=== PATIENT | female | born 1960 | race African-American/Black ===

== ENCOUNTER 2021-12-24 13:19 | Inpatient (IN) | payer BC ==
[~2021-12-24] VITALS: Ht 157.5 cm; Wt 64.1 kg
[2021-12-24 13:47] LABS: EOSINOPHILS % 0.5 % (0.0-5.0); HEMATOCRIT. 41.2 % (36.0-48.0); LYMPHOCYTES % 35.1 % (20.0-50.0); MEAN CORPUSCULAR HEMOGLOBIN 31.6 pg (28.0-32.0); MEAN CORPUSCULAR VOLUME 93.2 fL (81.0-99.0); MEAN PLATELET VOLUME 6.9 fl (7.4-10.4); MONOCYTES % 7.7 % (2.0-8.0); NEUTROPHILS % 55.7 % (40.0-76.0); PLATELET 267 x1000/uL (130-400); RED BLOOD CELL COUNT 4.42 mill/uL (4.2-5.4); RED CELL DISTRIBUTION WIDTH 16.9 % (11.6-14.6)
[2021-12-24 13:59] LABS: CHLORIDE 105 mEq/L (98-107)
[2021-12-24] MEDS ORDERED: DIPHENHYDRAMINE 50MG/ML VIAL IV ONE (15:30)
[2021-12-24] MEDS ORDERED: EPINEPHRINE 1:1000 1 MG/ML AMP INJ ONE (15:30)
[2021-12-24] MEDS ORDERED: METHYLPREDNISOLONE SOD SUCC 125 MG/2 ML VIAL IV ONE (15:30)
[2021-12-24] MEDS ORDERED: IOHEXOL-350 100 ML BOTTLE ONE (15:31)
[2021-12-24] MEDS ORDERED: ENOXAPARIN 80MG/0.8ML SYR SUBCUT ONE (16:15)
[2021-12-24 20:45] VITALS: BP 152/81
[2021-12-24 20:57] VITALS: BP 141/92
[2021-12-25] VITALS: BP 124/77
[2021-12-25] MEDS ORDERED: ACETAMINOPHEN 325MG TABLET PO PRN ×3 (01:15→02:30)
[2021-12-25] MEDS ORDERED: MAGNESIUM/ALUMINUM HYDROXIDE/SIMETHICONE 30ML UDC PO PRN (02:30)
[2021-12-25] MEDS ORDERED: GUAIFENESIN 200MG/10ML SUGAR FREE UDC PO PRN (02:30)
[2021-12-25] MEDS ORDERED: DOCUSATE SODIUM 100MG CAPSULE PO PRN (02:30)
[2021-12-25] MEDS ORDERED: IPRATROPIUM/ALBUTEROL 0.5-3(2.5)MG/3ML NEB NEB PRN (02:30)
[2021-12-25] MEDS ORDERED: ONDANSETRON HCL 4MG/2ML INJ IV PRN (02:30)
[2021-12-25] MEDS ORDERED: CLONIDINE 0.1MG TABLET PO PRN (02:30)
[2021-12-25] MEDS ORDERED: ZOLPIDEM TARTRATE 5MG TABLET PO PRN (02:30)
[2021-12-25] MEDS ORDERED: NITROGLYCERIN 0.4MG TABLET SL SL PRN (02:30)
[2021-12-25 04:00] VITALS: BP 123/80
[2021-12-25] MEDS: ENOXAPARIN 60MG/0.6ML SYR SUBCUT SCH ×2 (06:29→18:25)
[2021-12-25 06:56] LABS: CHLORIDE 105 mEq/L (98-107); INR 1.1; PROTHROMBIN TIME 11.4 sec (9.6-11.0)
[2021-12-25 06:59] LABS: HEMATOCRIT 41.4 % (36.0-48.0); HEMOGLOBIN 13.9 g/dL (12.0-16.0); MEAN CORPUSCULAR HEMOGLOBIN 31.2 pg (28.0-32.0); MEAN CORPUSCULAR VOLUME 93.2 fL (81.0-99.0); PLATELET 312 x1000/uL (130-400); RED BLOOD CELL COUNT 4.44 mill/uL (4.2-5.4); RED CELL DISTRIBUTION WIDTH 16.8 % (11.6-14.6)
[2021-12-25 07:02] LABS: CREATINE KINASE 97 IU/L (26-192); CREATINE KINASE MB FRACTION < 1.0 ng/mL (0.5-3.6)
[2021-12-25 07:04] LABS: BASOPHILS % 0.1 % (0.0-2.0); HEMATOCRIT. 40.2 % (36.0-48.0); HEMOGLOBIN. 14.1 g/dL (12.0-16.0); LYMPHOCYTES % 11.3 % (20.0-50.0); MEAN CORPUSCULAR HEMOGLOBIN 32.2 pg (28.0-32.0); MEAN CORPUSCULAR VOLUME 92.1 fL (81.0-99.0); MEAN PLATELET VOLUME 7.6 fl (7.4-10.4); NEUTROPHILS % 86.6 % (40.0-76.0); PLATELET 299 x1000/uL (130-400); RED BLOOD CELL COUNT 4.37 mill/uL (4.2-5.4); RED CELL DISTRIBUTION WIDTH 16.7 % (11.6-14.6)
[2021-12-25 07:10] LABS: ETHANOL BLOOD < 10 mg/dL; HDL CHOLESTEROL 63 mg/dL (40-59); LDL CHOLESTEROL 138 mg/dL (5-100); T4 FREE 1.06 ng/dL (0.76-1.46); TOTAL IRON BINDING CAPACITY 258 ug/dL (250-450)
[2021-12-25 07:23] LABS: FOLIC ACID (FOLATE) SERUM 6.6 ng/mL (>5.38)
[2021-12-25 08:00] VITALS: BP 125/79
[2021-12-25] MEDS: ASPIRIN 325MG EC TABLET PO SCH (08:49)
[2021-12-25] MEDS: FAMOTIDINE 20MG TABLET PO SCH ×2 (08:49→21:03)
[2021-12-25 12:00] VITALS: BP 140/81
[2021-12-25 15:51] LABS: CREATINE KINASE 75 IU/L (26-192); CREATINE KINASE MB FRACTION < 1.0 ng/mL (0.5-3.6)
[2021-12-25 16:00] VITALS: BP 121/77
[2021-12-25 20:00] VITALS: BP 127/78
[2021-12-25] MEDS: ATORVASTATIN CALCIUM 10MG TABLET PO SCH (21:03)
[2021-12-26] VITALS: BP 123/72
[2021-12-26 04:00] VITALS: BP_SYST 118; BP_SYST 132; BP_DIAS 68
[2021-12-26] MEDS: ENOXAPARIN 60MG/0.6ML SYR SUBCUT SCH ×2 (05:14→18:25)
[2021-12-26 06:31] LABS: BASOPHILS % 0.6 % (0.0-2.0); EOSINOPHILS % 0.3 % (0.0-5.0); HEMATOCRIT. 38.9 % (36.0-48.0); LYMPHOCYTES % 42.1 % (20.0-50.0); MEAN CORPUSCULAR HEMOGLOBIN 31.2 pg (28.0-32.0); MEAN PLATELET VOLUME 7.6 fl (7.4-10.4); MONOCYTES % 4.7 % (2.0-8.0); NEUTROPHILS % 52.3 % (40.0-76.0); PLATELET 331 x1000/uL (130-400); RED BLOOD CELL COUNT 4.18 mill/uL (4.2-5.4); RED CELL DISTRIBUTION WIDTH 16.7 % (11.6-14.6)
[2021-12-26 07:55] LABS: CHLORIDE 107 mEq/L (98-107)
[2021-12-26 08:00] VITALS: BP 134/87
[2021-12-26 08:04] LABS: PHOSPHORUS 3.6 mg/dL (2.5-4.9)
[2021-12-26] MEDS: ASPIRIN 325MG EC TABLET PO SCH (10:15)
[2021-12-26] MEDS: FAMOTIDINE 20MG TABLET PO SCH ×2 (10:15→22:15)
[2021-12-26 12:00] VITALS: BP 128/85
[2021-12-26 16:00] VITALS: BP 123/63
[2021-12-26 20:00] VITALS: BP 139/85
[2021-12-26] MEDS: ATORVASTATIN CALCIUM 10MG TABLET PO SCH (22:15)
[2021-12-27] VITALS: BP 132/78
[2021-12-27 04:00] VITALS: BP_SYST 124; BP_SYST 130; BP_DIAS 72; BP_DIAS 87
[2021-12-27] MEDS: ENOXAPARIN 60MG/0.6ML SYR SUBCUT SCH (05:04)
[2021-12-27 08:00] VITALS: BP 119/84
[2021-12-27] MEDS ORDERED: ASPI-1406 MT (10:35)
[2021-12-27] MEDS ORDERED: APIX5TAB PO (10:36)
[2021-12-27] MEDS ORDERED: FAMO-135 MT (10:36)
[2021-12-27] MEDS ORDERED: APIX5TAB MT (10:36)
[2021-12-27] MEDS ORDERED: ATOR10TA MT (10:36)
[2021-12-27] MEDS: ASPIRIN 325MG EC TABLET PO SCH (11:36)
[2021-12-27] MEDS: FAMOTIDINE 20MG TABLET PO SCH (11:41)
[2021-12-27 12:00] VITALS: BP 122/75
[2021-12-27] MEDS ORDERED: BENZONATATE 100MG CAPSULE PO PRN (13:00)
[2021-12-27 16:00] VITALS: BP 135/73
[2021-12-27 16:46] VITALS: BP 125/75
== END 2021-12-27 18:17 | disposition home or self-care (01) | DRG 70 ==
LOC: ER 13:19 → ENRESERV 18:44 → 6WST 20:15
PROVIDERS: ADMIT Internal Medicine; ATTEND Internal Medicine
DX: G93.40 Encephalopathy, unspecified (principal); I26.99 Other pulmonary embolism without acute cor pulmonale; E44.1 Mild protein-calorie malnutrition; Z68.25 Body mass index [BMI] 25.0-25.9, adult; Z88.1 Allergy status to other antibiotic agents; Z91.041 Radiographic dye allergy status
CPT/HCPCS: 36415; 70496; 70498; 70551; 80048; 80053; 80061; 80320; 82550; 82553; 82607; 82746; 83036; 83540; 83550; 83735; 84100; 84439; 84443; 84484; 85025; 85027; 93005; 93306; 93970; 99291; J1200; J1650; J2930; J3490; Q9967; G0480